=== PATIENT | female | born 1955 | race Caucasian/White ===

== ENCOUNTER 2022-09-02 09:21 | Emergency (ER) | payer MEDICARE, MEDICAID ==
[~2022-09-02] VITALS: Ht 154.9 cm; Wt 127.3 kg
[2022-09-02 09:25] VITALS: TEMP 98.3
[2022-09-02 11:04] VITALS: BP 180/75; PULSE 73; RESP 18; O2SAT 94
== END 2022-09-02 11:06 | disposition home or self-care (01) ==
LOC: ER 09:22
DX: T19.2XXA Foreign body in vulva and vagina, initial encounter (principal)
CPT/HCPCS: 99284

== ENCOUNTER 2023-09-11 09:18 | Emergency (ER) | payer MEDICARE, MEDICAID ==
[~2023-09-11] VITALS: Ht 154.9 cm; Wt 77.2 kg
[2023-09-11] MEDS ORDERED: CETI10TA14 PO (10:34)
[2023-09-11] MEDS ORDERED: GLIP5TAB23 PO (10:34)
[2023-09-11] MEDS ORDERED: LISI40TA13 PO ×2 (10:34→11:45)
[2023-09-11] MEDS ORDERED: METF-1203 PO (10:34)
[2023-09-11] MEDS ORDERED: lisinopril 10 MG tablet PO ONE (10:45)
[2023-09-11] MEDS: lisinopril 20mg tablet PO ONE (10:51)
[2023-09-11 11:30] VITALS: BP 177/86; PULSE 85; RESP 17; O2SAT 95
[2023-09-11 11:55] VITALS: TEMP 98
== END 2023-09-11 11:50 | disposition home or self-care (01) ==
LOC: ER 09:18
DX: I10 Essential (primary) hypertension (principal); Z76.0 Encounter for issue of repeat prescription; Z79.899 Other long term (current) drug therapy; Z79.84 Long term (current) use of oral hypoglycemic drugs
CPT/HCPCS: 99283

== ENCOUNTER 2024-08-19 16:29 | Inpatient (IN) | payer MEDICARE, MEDICAID ==
[~2024-08-19] VITALS: Ht 154.9 cm; Wt 59.0 kg
[~2024-08-19 16:29] MED LIST: GLIP5TAB23 PO; LISI40TA13 PO; METF-1203 PO
--- NOTE | 2024-08-19 17:01 | ELECTROCARDIOGRAPH REPORT ---
[facility] Test Date: 2024-08-19 Test Time: 16:59:30 Pat Name: YULIET KING Department: [facility]-ER Patient ID: [id number] Room: [place] [address] Gender: F Advanced Practice Nurse Psychotherapist: : [id number] Requested By: LISE HONEYCUTT Order Number: [id number] Reading MD: Dr. Ilia Mejia Measurements Intervals [place] Rate: 81 P: 16 SC: 177 QRS: -74 QRSD: 103 T: 57 QT: 381 QTc: 443 Interpretive Statements Sinus rhythm Inferior infarct, old Anterior infarct, old Electronically Signed On 08-27-2024 20:06:[address] Ilia Mejia Please click the below link to view image of tracing.
--- NOTE | 2024-08-19 17:16 | Physician Documentation ---
History of Present Illness ~ Chief Complaint: Cold, cough & congestion Stated Complaint: CHEST PAIN Time Seen by MD: 16:37 Primary Medical Doctor: hospitalist HPI 69-year-old female presents to the ED with a 2-3 weeks of cold cough and congestion.. She states that she has a chest pain on the left side today. she has been ornery with the EMS and myself while obtaining a history. She is initially refused having an x-ray done. Reports that her chest pain is on her left side and will not respond to questions regarding exacerbating or alleviating factors very difficult to obtain history at this time Patient is DNR is comfort care only Day of Onset: Aug 19, 2024 Medication Reconciliation Allergies: Coded Allergies: No Known Allergies (Unverified , 11/12/23) Scheduled Glipizide (Glipizide), 1 TAB PO DAILY, (Reported) Lisinopril* (Lisinopril*), 1 TAB PO ONCE, (Reported) Metformin HCl (Metformin HCl), 1 TAB PO QAM, (Reported) Past Medical History Past Medical History: No Pertinent History Review of Systems All Other Systems at this time: Reviewed and Negative ROS As stated above in the HPI, otherwise all systems are reviewed and negative. Physical Exam Vital Signs: Temperature: 98.0, Source: Temporal, Heart Rate: 82, Respiratory Rate: 12, BP: 125/81, Pulse Oximetry: 94, Weight: 59.000 Oxygen Flow Rate: 0 Progress Results/Orders Results/Orders Orders - SOY HONEYCUTT FLOUR TESTER Chest,Single View (08/19/24 17:20) Monitor (08/19/24 16:51) Saline Lock (08/19/24 16:51) Oxygen (08/19/24 16:51) Hs Troponin I W Calculations (08/19/24 19:51) Cbc/Diff (08/20/24 03:00) Cbc/Diff (08/21/24 03:00) Cbc/Diff (08/22/24 03:00) Cbc/Diff (08/23/24 03:00) Cbc/Diff (08/24/24 03:00) Page Hospitalist (08/19/24 ) LA (08/19/24 18:58) Enoxaparin Syringe (Lovenox Syringe) (08/19/24:25) Completed Orders - TANGELA,SOY H FLOUR TESTER Chest,Single View (08/19/24 17:20) Cbc/Diff (08/19/24 16:51) BMP (08/19/24 16:51) PBNP (08/19/24 16:51) Electrocardiogram (08/19/24 16:51) Hs Troponin I W Calculations (08/19/24 16:51) Hs Troponin I W Calculations (08/19/24 18:51) Pt Inr (08/19/24 18:21) PTT (08/19/24 18:21) Heparin 10,000 Unit/Ml 1ml (Heparin 10,0 (08/19/24 18:25) Heparin 25,000 Unit/250ml Bag (Heparin 2 (08/19/24 18:25) Normal Saline 1000ml (0.9% Sodium Chlori (08/19/24 18:30) Heparin 10,000 Unit/Ml 1ml (Heparin 10,0 (08/19/24 18:40) Message To Nursing (08/19/24 18:45) Morphine 4mg/Ml Inj. (Morphine Inj.) (08/19/24 19:05) Medications Received in ER Medications (Trade) Dose Ordered Sig/Varinder Route PRN Reason Start Time Stop Time Status Last Admin Dose Admin Heparin Sodium/ Dextrose 250 ml @ 7 mls/hr [id number] PRN IV TO MAINTAIN PTT WITHIN RANGE 08/19/24 18:25 08/19/24 19:25 DC 08/19/24 18:56 7 MLS/HR (0.9% sodium chloride (NS) 1000ml IV soln) 1,000 ml ONCE ONCE IVB 08/19/24 18:30 08/19/24 18:31 DC 08/19/24 18:51 1,000 ML (heparin 10,000 unit/ml 1ml inj) 3,500 units ONCE ONCE IV 08/19/24 18:40 08/19/24 19:25 DC 08/19/24 18:54 3,500 UNITS Non-Formulary Medication 1 each ONCE ONCE IV 08/19/24 18:45 08/19/24 19:25 DC 08/19/24 18:57 1 EACH Vital Signs 08/19/24 08/19/24 08/19/24 16:48 18:00 19:20 Temp 98.0 Pulse 82 70 Resp 12 12 18 B/P (MAP) 125/81 118/74 (89) Pulse Ox 94 99 O2 Flow Rate 0 Laboratory Tests Test 08/19/24 17:42 08/19/24 18:37 White Blood Count 14.6 H Red Blood Count 3.99 L Hemoglobin 11.8 L Hematocrit 36.5 Mean Corpuscular Volume 91.3 Mean Corpuscular Hemoglobin 29.6 Mean Corpuscular Hemoglobin Concent 32.5 L Red Cell Distribution Width 15.2 H Platelet Count 733 H Mean Platelet Volume 7.5 Neutrophils (%) (Auto) 76.3 H Lymphocytes (%) (Auto) 14.5 L Monocytes (%) (Auto) 7.1 Eosinophils (%) (Auto) 1.2 Basophils (%) (Auto) 0.9 Neutrophils # (Auto) 11.1 H Lymphocytes # (Auto) 2.1 Monocytes # (Auto) 1.0 H Eosinophils # (Auto) 0.2 Basophils # (Auto) 0.1 CBC Comment Prothrombin Time 10.9 INR International Normalized Ratio 1.1 Activated Partial Thromboplast Time 30 Coagulation Comments Sodium Level 136 Potassium Level 4.9 Chloride Level 102 Carbon Dioxide Level 24.0 Anion Gap 10 Blood Urea Nitrogen 36 H Creatinine 1.47 H Estimated GFR/1.73 m2 35 BUN/Creatinine Ratio 24.5 H Glucose Level 152 H Calcium Level 10.1 Troponin I High Sensitivity 881 *H 1218 *H Pro-B-Type Natriuretic Peptide 1128 H Albumin 2.3 L Chemistry Comments Troponin I High Sens Percent Delta 38 Troponin I Hi Sens Absolute Change 337 Medical Decision Making Findings Patient continues to complain of left-sided chest pain. She is very difficult to communicate with.. Departure Disposition: ADMITTED INPATIENT Impression: Primary Impression: NSTEMI (non-ST elevated myocardial infarction) Referrals: NO PRIMARY CARE PROVIDER (PCP) Signature Scribe Signature: y Attestation: Scribed for Soy Honeycutt Business Controller by Soy Ham NP . 08/19/24 18:53 SOY HONEYCUTT NP Aug 19, 2024 17:16
--- NOTE | 2024-08-19 17:45 | RADIOLOGY REPORT ---
CHEST RADIOGRAPH REASON FOR EXAM: Chest pain COMPARISON: DI CHEST,SINGLE VIEW on DOS: 11/12/23 TECHNIQUE: One view of the chest is provided FINDINGS: The cardiomediastinal silhouette is within normal limits for size. There is elevation of th e right hemidiaphragm. There is platelike atelectasis extending from the right hilum. There is subtl e right upper lobe airspace disease that may represent atelectasis although pneumonia is not ruled ou t. There is no significant pleural effusion. There is no pneumothorax. No acute osseous abnormality is identified. IMPRESSION: Right upper lobe airspace disease that may represent atelectasis although pneumonia is not ruled out. Correlate clinically.
[2024-08-19 17:52] LABS: MEAN PLATELET VOLUME 7.5 FL (7.4-10.4); RED CELL DISTRIBUTION WIDTH 15.2 % (11.5-14.5)
[2024-08-19 18:16] LABS: CREATININE 1.47 MG/DL (0.40-0.90); PRO BRAIN NATRIURETIC PEPTIDE 1128 PG/ML (0-125); TOTAL CARBON DIOXIDE 24.0 MMOL/L (24-32); eCRCL 26 ML/MIN; eGFR 35 ML/MIN
[2024-08-19] MEDS ORDERED: heparin 10,000 units/1 ML INJ IV PRN (18:25)
[2024-08-19 18:45] LABS: APTT 30 SECONDS (22-32); INR 1.1 INR
[2024-08-19] MEDS: normal saline 1000ML IV soln IVB ONE (18:51)
[2024-08-19] MEDS: heparin 10,000 units/1 ML INJ IV ONE ×2 (18:54→18:57)
[2024-08-19] MEDS: heparin 25,000 UNIT/250ml bag 250 ML IV PRN (18:56)
[2024-08-19] MEDS: MESSAGE TO NURSING IV ONE (18:57)
[2024-08-19] MEDS: morphine 4 MG/ML inj SYRINge IV ONE (19:05)
[2024-08-19] MEDS: enoxaparin 30mg/0.3ml syringe SUBCUT ONE (19:25)
[2024-08-19] MEDS ORDERED: HYDROmorphone/PF 0.2 MG/ML SYRINGE IV PRN (19:45)
[2024-08-19] MEDS ORDERED: HYDROcodone/acetaminophen 10/325mg tab PO PRN (19:45)
[2024-08-19] MEDS ORDERED: magnesium Cl slow-release 64mg tablet PO PRN (19:45)
[2024-08-19] MEDS ORDERED: morphine 10mg/0.5ml (conc. morphine) oral syringe PO PRN (19:45)
[2024-08-19] MEDS ORDERED: morphine 10mg/ml inj. IV PRN (19:45)
[2024-08-19] MEDS ORDERED: magnesium sulf-water 4G/100mL 100 ML IV PRN (19:45)
[2024-08-19] MEDS ORDERED: potassium Cl 40MEQ/1/2NS 520ml 520 ML IV PRN (19:45)
[2024-08-19] MEDS ORDERED: potassium Cl 20 mEq SR tablet PO PRN ×2 (19:45)
[2024-08-19] MEDS ORDERED: HYDROmorphone inj. 0.5 MG/0.5 ML DISP.SYRIN IV PRN (19:45)
[2024-08-19] MEDS ORDERED: bisacodyl 10mg suppository rectal RC PRN (19:45)
[2024-08-19] MEDS ORDERED: ondansetron/PF 4mg/2ml inj IV PRN (19:45)
[2024-08-19] MEDS ORDERED: magnesium sulf-water 2g/50mL 50 ML IV PRN (19:45)
[2024-08-19] MEDS ORDERED: HYDROcodone/acetaminophen 5mg/325mg tablet PO PRN (19:45)
[2024-08-19] MEDS ORDERED: mag hydrox/Alum hydrox/simeth 30ml oral suspension PO PRN (19:45)
[2024-08-19] MEDS ORDERED: magnesium hydroxide 30ml (MOM) UD suspension PO PRN (19:45)
[2024-08-19] MEDS: K and/or MAG REPLACEMENT MC SCH (20:00)
[2024-08-19] MEDS: docusate sod 100mg capsule PO SCH (20:00)
--- NOTE | 2024-08-19 21:29 | HISTORY AND PHYSICAL-Residence ---
History & Physical Providers to CC Resident Creating Document: DELMA GREENWOOD, RES ~ History of Present Illness Primary Medical Doctor: hospitalist Reason for Admit\Complaint: Chest pain History of Present Illness This is a 69-year-old female with a history of hypertension, type 2 diabetes, hyperlipidemia, anxiety, depression, kidney disease [facility]. Patient is a very poor historian and is refusing to answer any questions. Most of the history was obtained from ER notes and nursing facility. Per records patient has been having cough since three weeks, has been refusing all medications and food and has been noncompliant with the staff of nursing facility. She has been transferred as they were unable to manage her at the facility. Patient also has documentation from nursing facility that says that her code status is DNR with comfort care. ED course: Patient has refused vital check hitting nurses had. Patient refusing auscultation of lungs. This has been her baseline since the last two months per SNF. Patient also refused EKG and ripped the cardiac leads off. Patient had elevated troponin and was started on heparin drip in the ER which was later discontinued after confirming the code status of the patient. Patient was requested to be admitted because of SNF being unable to take care of the patient and for pain control. Patient is currently chest pain-free. There is no information about next of kin on EMR or SNF records. Allergies: Coded Allergies: No Known Allergies (Unverified , 11/12/23) Home Medications Home Medications Active Reported Lisinopril* (Lisinopril) 40 Mg Tablet 1 Tab PO ONCE Glipizide 5 Mg Tablet 1 Tab PO DAILY Metformin HCl 500 Mg Tablet 1 Tab PO QAM Past Medical History Past Medical History Hypertension, type 2 diabetes, hyperlipidemia, anxiety, depression, cognitive impairment Past Surgical History Surgical History Comment Unable to obtain Past Social History Social History Comment Unable to obtain ROS All Other Systems: Reviewed and Negative ROS Unable to obtain Exam Vitals: Vital Signs Date Time Temp Pulse Resp B/P (MAP) Pulse Ox O2 Delivery O2 Flow Rate FiO2 08/19/24 20:46 98.1 72 18 122/72 (89) 98 08/19/24 16:48 0 General: Unable to examine, no consent from the patient to examine Diagnostic Data Last Recorded Lab Results: 08/19/24 1742 08/19/24 1742 Diagnostic Data: Laboratory Tests Test 08/19/24 17:42 Prothrombin Time 10.9 SECONDS (9.0-12.0) INR International Normalized Ratio 1.1 INR Activated Partial Thromboplast Time 30 SECONDS (22-32) Coagulation Comments Advance Care Planning Advanced Care plannin - 30 Minutes (Code status is DNR with comfort care per documentation from the SNF records) Additional Plan Chest pain, NSTEMI Community-acquired pneumonia Normocytic normochromic anemia Reactive thrombocytosis CKD stage 3 Severe protein calorie malnutrition EKG shows Q-waves in inferior and lateral leads. Low-voltage QRS complexes. No evidence of ST-elevation or depression. Serial troponins were up trending from 881, 1218, 1579. Patient has been initially started on heparin drip which was later discontinued. Patient has been started on comfort care measures with Ativan, morphine, laxatives, nausea medication. Patient evaluated using HIPPA compliant AV device Discussed with resident as outlined above Deyvi Grimes MD Date of Service: Aug 19, 2024 Billing Provider: DEYVI GRIMES MD, DEEPIKA BANDI, RES Aug 19, 2024 21:29 DEYVI GRIMES MD Aug 20, 2024 04:00
[2024-08-19] MEDS ORDERED: NIFE90TA61 PO (23:26)
[2024-08-19] MEDS ORDERED: NITR0.4T48 (23:26)
[2024-08-19] MEDS ORDERED: DORZ10DR26 EACHEYE (23:26)
[2024-08-20] VITALS: RESP 16
[2024-08-20] MEDS ORDERED: codeine/proMETHazine 5ml UD syrup PO PRN (05:20)
[2024-08-20] MEDS: guaiFENesin 200mg/20mg codeine phos 10ml UD oral syrup PO PRN (05:38)
[2024-08-20 06:30] VITALS: BP 96/52; PULSE 77; RESP 13; TEMP 96.6; O2SAT 96
--- NOTE | 2024-08-20 19:35 | PROGRESS NOTE ---
Daily Progress Note Providers to CC ~ Antibiotic Timeout Antibiotic Ordered?: Yes Subjective Patient is seen in presence of nursing staff patient was not confused answered all questions appropriately but she was very reluctant to get examined and was she shouting and yelling. She is not very cooperative with staff and not compliant with treatment. customer support [facility] and [facility] them patient is currently not on comfort care she even called the 911 by herself. As per patient she was having cough but she denied any chest pain or any other cardiac symptoms to me. Objective Vital Signs Date Time Temp Pulse Resp B/P (MAP) Pulse Ox O2 Delivery O2 Flow Rate FiO2 08/20/24 08:30 0.0 08/20/24 06:30 96.6 77 13 96/52 (68) 96 Result Diagram: 08/19/24 1742 08/19/24 1742 General-patient not in any acute distress, awake, chronically ill-appearing HEENT-atraumatic normocephalic, neck supple without elevated JVD, No lymphadenopathy bilaterally. Eyes-no icterus or pallor seen in eyes Chest-clear to auscultation bilaterally, breathing nonlabored no tachypnea, no wheezing, no crepitation, no crackles. Dry cough noticed Heart-S1-S2 normal, regular heart rate no murmur Abdomen bowel sounds positive on auscultation, soft nondistended nontender no guarding, no rigidity Skin no active skin rash. Neurology-grossly intact, nonfocal awake Extremity- no pedal edema able to move all 4 extremities Psychiatry - patient is not confused or agitated , barely cooperated during physical examination Coagulation Studies Laboratory Tests Test 08/19/24 17:42 Prothrombin Time 10.9 SECONDS (9.0-12.0) INR International Normalized Ratio 1.1 INR Activated Partial Thromboplast Time 30 SECONDS (22-32) Coagulation Comments Problem\Assessment\Plan Chest pain, NSTEMI Community-acquired pneumonia Normocytic normochromic anemia Reactive thrombocytosis CKD stage 3 Severe protein calorie malnutrition EKG shows Q-waves in inferior and lateral leads. Low-voltage QRS complexes. No evidence of ST-elevation or depression. Serial troponins were up trending from 881, 1218, 1579. Patient does not have any chest pain likely type 2 MO Patient has been initially started on heparin drip which was later discontinued. Patient is on comfort care measures with Ativan, morphine, laxatives, nausea medication. Patient is seen in presence of nursing staff patient was not confused answered all questions appropriately but she was very reluctant to get examined and was she shouting and yelling. She is not very cooperative with staff and not compliant with treatment. customer support [facility] and according to them patient is currently not on comfort care she even called the 911 by herself. As per patient she was having cough but she denied any chest pain or any other cardiac symptoms to me. Patient's current condition is guarded we will continue to follow patient in a.m. Date of Service: Aug 20, 2024 Billing Provider: RORO CANELA MD Common Visit Codes: [id number] INP/OBS CARE(HIGH) RORO CANELA MD Aug 20, 2024 19:35
[2024-08-21] MEDS: CefTRIAXone 2gm/D5W 50ml BAG 50 ML IV SCH (08:00)
--- NOTE | 2024-08-21 16:46 | CONSULTATION REPORT ---
History of Present Illness Providers to CC CC: JAMAAL FERREIRA MD ~ Reason for Admit\Admit Dx: Cardiology consultation Refering MD: hospitalist History of Present Illness This is a 69-year-old female with history of hypertension, type 2 diabetes, hyperlipidemia, chronic kidney disease. She presented with initial complaint of chest pain. According to the nurses patient actually called 911 from her room at her long term facility. She currently denies chest pain or pressure. No shortness a breath. Complains of cough. Refusing IV and most of her medications. EKG with nonspecific ST changes. High sensitivity troponins trended up to 1579. She refuses an echocardiogram. States she will take medications but no interventions. No needles. Allergies: Coded Allergies: No Known Allergies (Unverified , 11/12/23) Home Medications Home Medications Active Reported Nifedipine ER* (Nifedipine) 90 Mg Tab.er2.24 1 Tab PO DAILY Nitroglycerin 0.4 Mg Tab.subl Dorzolamide HCl 2 % Drops EACHEYE Lisinopril* (Lisinopril) 40 Mg Tablet 1 Tab PO ONCE Glipizide 5 Mg Tablet 1 Tab PO DAILY Metformin HCl 500 Mg Tablet 1 Tab PO QAM Past Medical History Medical History Comment Hypertension Diabetes Hyperlipidemia Chronic kidney disease Cognitive impairment? Past Surgical History Surgical History Comment Unknown Past Social History Social History Comment Patient lives in a long term facility. Other social risk factors unknown. Physical Exam Last Vital Signs Recorded: RN Vital Signs have been reviewed: Yes, Temperature: 96.6, Source: Oral, Heart Rate: 77, Respiratory Rate: 13, BP: 96/52, Pulse Oximetry: 96, Weight: 59.000 Physical Exam General: Awake, alert. Refusing to answer orientation questions for nursing. Neck: Supple. Normal range of motion. No JVD Respiratory: Lungs are clear to auscultation bilaterally. No respiratory distress. Chest: Normal shape and size. No accessory muscle use. Cardiovascular: Regular rate and rhythm. S1-S2. No murmur, gallop, rub. Gastrointestinal: Abdomen is soft. Nontender to palpation. Bowel sounds present. Extremities: No lower extremity edema, cyanosis or clubbing. Neurologic: Moving all extremities. Psychiatric: Argumentative. Intermittently combative with nursing. Skin: Normal color. Warm and dry. Review of Systems ROS Patient denies chest pain. Denies shortness or breath. Denies dyspnea on exertion. Complains of cough. Denies sputum production. Results X-ray X-ray CHEST RADIOGRAPH REASON FOR EXAM: Chest pain COMPARISON: DI CHEST,SINGLE VIEW on DOS: 11/12/23 TECHNIQUE: One view of the chest is provided FINDINGS: The cardiomediastinal silhouette is within normal limits for size. There is elevation of the right hemidiaphragm. There is platelike atelectasis extending from the right hilum. There is subtle right upper lobe airspace disease that may represent atelectasis although pneumonia is not ruled out. There is no significant pleural effusion. There is no pneumothorax. No acute osseous abnormality is identified. IMPRESSION: Right upper lobe airspace disease that may represent atelectasis although pneumonia is not ruled out. Correlate clinically. Electronically Signed by:JASON BISHOP MD Date & Time: 08/19/241742 Dictated by: JASON BISHOP MD Dictation date and time: 08/19/241742 Diagram Lab Result Diagram: 08/19/24174108/19/241741 Assessment/Plan Additional Plan NSTEMI Refuses further management. Refuses echocardiogram. --recommend medical management. Can consider metoprolol the last blood pressure documented which was on the 16 (yesterday0 was somewhat hypotensive. Recommend statin. Pneumonia Refusing antibiotics through the IV. She refuses IV therapies at all. Hypertension --on nifedipine 90 mg daily as well as lisinopril 40 mg daily. Diabetes mellitus --management per hospitalist Acute kidney injury versus chronic kidney disease BUN is 36 and creatinine 1.47. GFR 35 Last year her creatinine was 1.06. Case discussed with Dr. Amairani Ferreira. In agreement with medical management. Supervising MD Supervising Physician: AMY Sarah NP Aug 21, 2024 16:46
--- NOTE | 2024-08-21 16:58 | PROGRESS NOTE ---
Daily Progress Note Providers to CC ~ Antibiotic Timeout Antibiotic Ordered?: Yes Subjective Patient is seen in presence of nursing staff barely allowed me to examine her. Refusing for IV blood draw vitals in all the rest of the treatment. Troponin ordered but patient refused. Cardiology consult requested from Dr. Austyn Ferreira in appreciate his input in this patient's case. Objective Vital Signs Date Time Temp Pulse Resp B/P (MAP) Pulse Ox O2 Delivery O2 Flow Rate FiO2 08/21/24 08:30 Room Air 0.0 08/20/24 06:30 96.6 77 13 96/52 (67) 96 Result Diagram: 08/19/24 1742 08/19/24 1742 General-patient not in any acute distress, awake, chronically ill-appearing HEENT-atraumatic normocephalic, neck supple without elevated JVD, No lymphadenopathy bilaterally. Eyes-no icterus or pallor seen in eyes Chest-clear to auscultation bilaterally, breathing nonlabored no tachypnea, no wheezing, no crepitation, no crackles. Dry cough noticed Heart-S1-S2 normal, regular heart rate no murmur Abdomen bowel sounds positive on auscultation, soft nondistended nontender no guarding, no rigidity Skin no active skin rash. Neurology-grossly intact, nonfocal awake Extremity- no pedal edema able to move all 4 extremities Psychiatry - patient is not confused or agitated , barely cooperated during physical examination Coagulation Studies Laboratory Tests Test 08/19/24 17:42 Prothrombin Time 10.9 SECONDS (9.0-12.0) INR International Normalized Ratio 1.1 INR Activated Partial Thromboplast Time 30 SECONDS (22-32) Coagulation Comments Problem\Assessment\Plan Chest pain, NSTEMI Community-acquired pneumonia Normocytic normochromic anemia Reactive thrombocytosis CKD stage 3 Severe protein calorie malnutrition EKG shows Q-waves in inferior and lateral leads. Low-voltage QRS complexes. No evidence of ST-elevation or depression. Serial troponins were up trending from 881, 1218, 1579. Patient does not have any chest pain likely type 2 [place] Patient has been initially started on heparin drip which was later discontinued. Patient is on comfort care measures with Ativan, morphine, laxatives, nausea medication. Patient is seen in presence of nursing staff patient was not confused answered all questions appropriately but she was very reluctant to get examined and was she shouting and yelling. She is not very cooperative with staff and not compliant with treatment. imaging manager [facility] and [facility] to them patient is currently not on comfort care she even called the 911 by herself. As per patient she was having cough but she denied any chest pain or any other cardiac symptoms to me. Patient is noncompliant with all the treatments. Patient is seen in presence of nursing staff barely allowed me to examine her. Refusing for IV blood draw vitals in all the rest of the treatment. Troponin ordered but patient refused. Cardiology consult requested from Dr. Austyn Ferreira in appreciate his input in this patient's case. Patient's current condition is guarded we will continue to follow patient in a.m. possible discharge in a.m. back to rehab if clinically stable Date of Service: Aug 21, 2024 Billing Provider: RORO CANELA MD Common Visit Codes: [id number] INP/OBS CARE(HIGH) RORO CANELA MD Aug 21, 2024 16:58
[2024-08-21 20:00] VITALS: RESP 26; O2SAT 97
[2024-08-21 22:00] VITALS: BP 128/56; PULSE 87; RESP 26; O2SAT 97
[2024-08-22 06:00] VITALS: BP 115/55; PULSE 67; RESP 24; O2SAT 97
[2024-08-22 08:00] VITALS: RESP 24; O2SAT 97
--- NOTE | 2024-08-22 20:13 | DISCHARGE SUMMARY ---
Discharge Summary Providers to CC ~ Discharge Summary Admission Diagnosis: Chest pain Hospital Course DATE OF ADMISSION: August 19, 2024 DATE OF DISCHARGE: August 22, 2024 CBC testing done on August 19, 2024 WBC 14.6 hemoglobin 11.8 hematocrit 36.5 platelet count 733. Serum chemistry done on August 19, 2024 creatinine 1.47 GFR 35 troponin 881, 1218, 1579, proBNP 1128 lactic acid one point CHEST,SINGLE VIEW-IMPRESSION: Right upper lobe airspace disease that may represent atelectasis although pneumonia is not ruled out. Correlate clinically. Discharge Diagnosis\\Comment: NSTEMI Diabetes mellitus Acute kidney injury versus chronic kidney disease Hypertension Community-acquired pneumonia Normocytic normochromic anemia Reactive thrombocytosis CKD stage 3 Severe protein calorie malnutrition Operations\\Procedures: None Consultants: Dr Austyn Ferreira Complications: None Condition on DC: Stable Discharge Summary: As per admitting provider's history and physical note" This is a 69-year-old female with a history of hypertension, type 2 diabetes, hyperlipidemia, anxiety, depression, kidney disease was brought to the ER from [facility] for evaluation of chest pain. Patient is a very poor historian and is refusing to answer any questions. Most of the history was obtained from ER notes and nursing facility. Per records patient has been having cough since three weeks, has been refusing all medications and food and has been noncompliant with the staff of nursing facility. She has been transferred as they were unable to manage her at the facility. Patient also has documentation from nursing facility that says that her code status is DNR with comfort care. ED course: Patient has refused vital check hitting nurses had. Patient refusing auscultation of lungs. This has been her baseline since the last two months per SNF. Patient also refused EKG and ripped the cardiac leads off. Patient had elevated troponin and was started on heparin drip in the ER which was later discontinued after confirming the code status of the patient. Patient was requested to be admitted because of SNF being unable to take care of the patient and for pain control. Patient is currently chest pain-free. There is no information about next of kin on EMR or SNF records." During hospitalization patient was treated for Chest pain, NSTEMI Community-acquired pneumonia Normocytic normochromic anemia Reactive thrombocytosis CKD stage 3 Severe protein calorie malnutrition EKG shows Q-waves in inferior and lateral leads. Low-voltage QRS complexes. No evidence of ST-elevation or depression. Serial troponins were up trending from 881, 1218, 1579. Patient does not have any chest pain likely type 2 [place] Patient has been initially started on heparin drip which was later discontinued. Patient is on comfort care measures with Ativan, morphine, laxatives, nausea medication. Patient is seen in presence of nursing staff patient was not confused answered all questions appropriately but she was very reluctant to get examined and was she shouting and yelling. She is not very cooperative with staff and not compliant with treatment. marketing communications manager contacted [facility] and according to them patient is currently not on comfort care she even called the 911 by herself. As per patient she was having cough but she denied any chest pain or any other cardiac symptoms to me. Patient is noncompliant with all the treatments. Patient is seen in presence of nursing staff barely allowed me to examine her. Refusing for IV blood draw vitals in all the rest of the treatment. Troponin ordered but patient refused. Cardiology consult requested from Dr. Austyn Ferreira in appreciate his input in this patient's case. Patient is seen in presence of nursing staff barely allowed me to examine her. Refusing for IV blood draw vitals in all the rest of the treatment. Echo and Troponin ordered but patient refused. Patient is seen and examined on the day of discharge patient is discharged back to [facility] . Dr. Sanchez in person came to see her care plan discussed with Dr. Sanchez in [facility]. Further management as per .Dr. Sanchez General-patient not in any acute distress, awake, chronically ill-appearing, HEENT-atraumatic normocephalic, neck supple without elevated JVD, No lymphadenopathy bilaterally. Eyes-no icterus or pallor seen in eyes Chest-clear to auscultation bilaterally, breathing nonlabored no tachypnea, no wheezing, no crepitation, no crackles. Dry cough noticed Heart-S1-S2 normal, regular heart rate no murmur Abdomen bowel sounds positive on auscultation, soft nondistended nontender no guarding, no rigidity Skin no active skin rash. Neurology-grossly intact, nonfocal awake Extremity- no pedal edema able to move all 4 extremities Psychiatry - patient is not confused or agitated , barely cooperated during physical examination and she was trying to hit me with her left hand today *Problems/Diagnosis: (1) NSTEMI (non-ST elevated myocardial infarction) Status: Acute Total Time Spent on D/C: > 30 Minutes Date of Service: Aug 22, 2024 Billing Provider: RORO CANELA MD Common Visit Codes: 65019-HXK/OBS DISCH DAY >30min RORO CANELA MD Aug 22, 2024 20:07
== END 2024-08-22 13:18 | DRG 177 ==
LOC: ER 16:29 → ED HOLD 19:46 → UNDOADMIN 20:33 → ED HOLD 23:40 → SUR 3N 23:40
PROVIDERS: ADMIT Internal Medicine; ATTEND Internal Medicine
DX: J69.0 Pneumonitis due to inhalation of food and vomit (principal); E43 Unspecified severe protein-calorie malnutrition; I21.A1 Myocardial infarction type 2; Z66 Do not resuscitate; N18.30 Chronic kidney disease, stage 3 unspecified; E11.22 Type 2 diabetes mellitus with diabetic chronic kidney disease; E78.5 Hyperlipidemia, unspecified; I12.9 Hypertensive chronic kidney disease with stage 1 through stage 4 chronic kidney disease, or unspecified chronic kidney disease; F41.9 Anxiety disorder, unspecified; F32.A Depression, unspecified; D75.838 Other thrombocytosis; D64.9 Anemia, unspecified; Z79.899 Other long term (current) drug therapy; Z79.84 Long term (current) use of oral hypoglycemic drugs; Z91.199 Patient's noncompliance with other medical treatment and regimen due to unspecified reason; Z51.5 Encounter for palliative care; Z68.24 Body mass index [BMI] 24.0-24.9, adult
CPT/HCPCS: 36415; 71045; 80048; 83605; 83880; 84484; 85025; 85610; 85730; 87081; 93005; 96361; 96365; 96375; 99285; A6213; A6250; G0378; J1644; J7030